=== PATIENT | female | born 1985 | race Caucasian/White ===

== ENCOUNTER → 2016-08-28 | Outpatient (CLI) | payer BC ==
[2016-08-28 15:40] VITALS: BP 137/80
== END ==
LOC: MHUC 13:52
PROVIDERS: ATTEND Physician Assistant
DX: R05 Cough (principal)
CPT/HCPCS: 99213

== ENCOUNTER → 2016-08-31 | Outpatient (CLI) | payer BC ==
[2016-08-31 10:32] VITALS: BP 138/85
== END ==
LOC: MHUC 10:18
PROVIDERS: ATTEND Physician Assistant
DX: J40 Bronchitis, not specified as acute or chronic (principal)
CPT/HCPCS: 99213

== ENCOUNTER 2016-12-02 06:32 | Emergency (ER) | payer BC ==
[~2016-12-02] VITALS: Ht 172.7 cm; Wt 113.6 kg
[~2016-12-02 06:32] MED LIST: AMOX500C5; AZIT250T81 PO; BENZ-22 PO; FERR325T36 PO; HYDR-3702 PO; IBUP-793 PO; OXYC1TAB7; PENI250T4 PO; PENI500T PO; PRED20TA; PRED20TA PO; PREN1TAB39 PO; PROM12.59; SERT50TA PO; SERT50TA2 PO; [UNRECOGNIZED DRUG - CODE] PO
--- OUTSIDE RECORDS SUMMARY | 2016-12-02 06:37 | XMS REPORT | Continuity of Care Document ---
Author Author [facility] Organization [facility] Address Unknown Phone Unavailable Care Team Providers Care Manager Research Development Name Role Phone JESSICA CARCAMO MD PCP [phone] Insurance Providers Payer Name Policy Number Subscriber Name Relationship [facility] [id number] Lillian Alexander 01 Chief Complaint and Reason for Visit Chief Complaint Pain Reason for Visit [id number] Problems Medical Problems Problem Onset Date Status Normal labor 05/31/2012 Active Delivery normal 06/01/2012 Active Fever 07/07/2012 Active Vomiting 07/07/2012 Active Laceration of skin 12/04/2012 Active Pain, dental ~01/10/2015 Active Medications Medication Dose Route Sig Days/Qty Instructions Order Date Discontinued Date Status Sertraline Hcl 100 Mg ORAL DAILY 05/31/12 Active Vits W-Ca,Fe,Fa(<1MG) 1 Each ORAL DAILY 06/02/12 01/10/15 Discontinued Ferrous Sulfate 325 Mg ORAL DAILY 06/02/12 12/04/12 Discontinued Ibuprofen 600 Mg ORAL EVERY 6 HOURS PRN 06/02/12 01/10/15 Discontinued Penicillin V Potassium 500 Mg ORAL FOUR TIMES DAILY 01/10/15 Active Acetaminophen/Hydrocodone Bitart 1-2 Tab ORAL EVERY 6 HOURS PRN PAIN 30 Qty 01/10/15 Active Acetaminophen/Hydrocodone Bitart 1-2 Tab ORAL EVERY 6 HOURS PRN PAIN 20 Qty 1-2 po q6hrs prn severe pain 01/10/15 Active Social History No social history. Hospital Discharge Instructions No hospital discharge instructions. Plan of Care Discharge Date 01/10/15 3:20am Disposition 01 HOME OR SELF-CARE Condition at Discharge Stable Instructions/Education Provided Dental Abscess (ED) Prescriptions See Medications Section Referrals JESSICA CARCAMO MD Additional Instructions/Education OTC Ibuprofen 400mg every 6 to 8 hours with food as needed, as main pain med. Hydrocodone 5's as Dispensed / Rx'd, as needed for severe pain. Follow up with Dentist this next week. Some of your test results may not be complete prior to your leaving the Emergency Department. The Emergency Department is not authorized to give test results over the phone. Please contact the doctor's office listed in this packet of information for your final results. Follow up with your primary care physician or return to the Emergency Department for worsening or worrisome symptoms. * Emergency Department phone number: [phone], x [phone]* MEDICAL RECORD If you need copies of your X-rays, call [phone]. If you need copies of your medical record, including lab results, a signed authorization for release of records will be required. A telephone call for release of Health Information is not allowed. BILLING Billing can sometimes be confusing and frustrating. To help avoid confusion in the future, please take a moment to acquaint yourself with the billing parties for services. SERVICE BILLING [employer] Emergency Room Services [facility] Physician Services [facility] X-rays [place] [facility] Patients will receive bills for services from the appropriate provider. If you have any questions about your [facility] bill, our staff will be happy to assist you. Please call [phone], and ask for the billing department. THANK YOU for choosing [facility] as your emergency care provider! Functional Status No functional status results. Allergies, Adverse Reactions, Alerts Allergen Type Severity Reaction Status Last Updated hydrocodone bit Allergy Intermediate Rash Active 12/04/12 Codeine Allergy Intermediate Hives Active 12/04/12 Acetaminophen Allergy Intermediate Rash Active 05/31/12 Immunizations No immunization records. Vital Signs Acute Vital Signs Vital Response Date/Time Temperature (Fahrenheit) 98.5 Pulse 72 bpm Respirations 20 Height 5 ft 8 in Weight 239 lb Body Mass Index 36.0 kg/m^2 Results Test Source Date Result Interp. Ref. Range Comments Band Neutrophils % July 07, 2012 4:40pm 2 % N 0-6 Basophils # (Auto) July 07, 2012 4:40pm Not Performed 0.0-0.2 Basophils % July 07, 2012 4:40pm 0 % N 0-1 Basophils (%) (Auto) July 07, 2012 4:40pm Not Performed 0-2 Differential Total Cells Counted July 07, 2012 4:40pm 100 Eosinophils # (Auto) July 07, 2012 4:40pm Not Performed 0.0-0.5 Eosinophils % July 07, 2012 4:40pm 0 % N 0-5 Eosinophils (%) (Auto) July 07, 2012 4:40pm Not Performed 0-5 Hematocrit July 07, 2012 4:40pm 37.10 % N 37.00-47.00 Hemoglobin July 07, 2012 4:40pm 11.8 G/DL L 12.5-16.0 Lymphocytes # (Auto) July 07, 2012 4:40pm Not Performed 0.6-3.6 Lymphocytes % July 07, 2012 4:40pm 2 % L 16-34 Lymphocytes (%) (Auto) July 07, 2012 4:40pm Not Performed 16-34 Mean Corpuscular Hemoglobin July 07, 2012 4:40pm 24.8 PG L 27.0- 31.0 Mean Corpuscular Hemoglobin Concent July 07, 2012 4:40pm 31.8 g/dL L 32.0-36.0 Mean Corpuscular Volume July 07, 2012 4:40pm 78 FL N 78-100 Mean Platelet Volume July 07, 2012 4:40pm 8.4 FL N 6.0-9.5 Metamyelocytes % July 07, 2012 4:40pm 0 % N 0-1 Monocytes # (Auto) July 07, 2012 4:40pm Not Performed 0.1-1.3 Monocytes % July 07, 2012 4:40pm 3 % N 2-12 Monocytes (%) (Auto) July 07, 2012 4:40pm Not Performed 0-10 Neutrophils # (Auto) July 07, 2012 4:40pm Not Performed 2.1-8.1 Neutrophils (%) (Auto) July 07, 2012 4:40pm Not Performed 50-73 Platelet Count July 07, 2012 4:40pm 265 10^3/uL N 150-450 Red Blood Count July 07, 2012 4:40pm 4.75 10^6/uL N 4.20-5.40 Red Cell Distribution Width July 07, 2012 4:40pm 14.7 % H 11.5-14.0 Segmented Neutrophils % July 07, 2012 4:40pm 93 % H 50-70 Urine Bacteria July 07, 2012 5:00pm None seen /HPF Urine Bilirubin July 07, 2012 5:00pm Negative Negative Urine Blood July 07, 2012 5:00pm 2+ H Negative Urine Clarity July 07, 2012 5:00pm Clear Urine Color July 07, 2012 5:00pm Yellow Urine Glucose (UA) July 07, 2012 5:00pm Negative Negative Urine Ketones July 07, 2012 5:00pm Negative Negative Urine Leukocyte Esterase July 07, 2012 5:00pm Negative Negative Urine Nitrite July 07, 2012 5:00pm Negative Negative Urine Protein July 07, 2012 5:00pm Negative Negative Urine RBC July 07, 2012 5:00pm 5-10 /HPF H Urine Specific [place] July 07, 2012 5:00pm 1.020 1.005-1.030 Urine Squamous Epithelial Cells July 07, 2012 5:00pm 10-20 /LPF Urine Urobilinogen July 07, 2012 5:00pm 0.2 mg/dL 0.2-1.0 Urine WBC July 07, 2012 5:00pm None seen /HPF Urine pH July 07, 2012 5:00pm 7.5 5.0 - 8.0 White Blood Count July 07, 2012 4:40pm 15.9 10^3/uL H 4.00-10.2 Blood Morphology Comment July 07, 2012 4:40pm Normal NORMAL Procedures No known history of procedures. Encounters Encounter Location Date/Time Registered Emergency Room [facility] 01/10/15 1:10am Recent Diagnosis
--- OUTSIDE RECORDS SUMMARY | 2016-12-02 06:39 | XMS REPORT | Continuity of Care Document ---
Author Author [facility] Organization [facility] Address Unknown Phone Unavailable Care Team Providers Care Attendant [facility] Name Role Phone JESSICA CARCAMO MD PCP [phone] Insurance Providers Payer Name Policy Number Subscriber Name Relationship [facility] [id number] Lillian Alexander 01 Chief Complaint and Reason for Visit Chief Complaint Pain Reason for Visit [id number] Problems Medical Problems Problem Onset Date Status [...] worrisome symptoms. * Emergency Department phone number: [phone], x [phone]* MEDICAL RECORD If you need copies of your X-rays, call [phone]. If you need copies of [...] SERVICE BILLING [employer] Emergency Room Services [facility] Physician Services [facility] X-rays [place] [facility] Patients will receive bills for services from the appropriate provider. If you have any questions about your [facility] bill, our staff will be happy to assist you. Please call [phone], and ask for the billing department. THANK YOU for choosing [facility] as your emergency care provider! Functional Status [...] 2012 5:00pm 5-10 /HPF H Urine Specific [place] July 07, 2012 5:00pm 1.020 1.005-1.030 Urine [...] Encounters Encounter Location Date/Time Registered Emergency Room [facility] 01/10/15 1:10am Recent Diagnosis
[2016-12-02] MEDS ORDERED: BUSP5TAB59 PO (06:47)
[2016-12-02] MEDS ORDERED: ONDANSETRON 2 MG/ML (Z0FRAN) 2 ML VIAL IV ONE (07:05)
[2016-12-02] MEDS ORDERED: DEXAMETHASONE 4 MG/ML (DECADRON) 5ml VIAL IV ONE (07:05)
[2016-12-02] MEDS ORDERED: diphenhydrAMINE 50 MG/ML INJ (BENADRYL) IV ONE (07:05)
[2016-12-02] MEDS ORDERED: KETOROLAC 30 MG/ML (TORADOL) 1 ML VIAL IV ONE (07:05)
[2016-12-02 08:55] VITALS: BP 155/70
--- NOTE | 2016-12-02 09:14 | NUR ---
Patient sleeping at this time. Call light in reach.
== END 2016-12-02 10:35 | disposition home or self-care (01) ==
LOC: ED 06:35
DX: G43.809 Other migraine, not intractable, without status migrainosus (principal)
CPT/HCPCS: 96361; 96374; 96375; 99283; J1100; J1200; J1885; J2405; J7030; 99282